=== PATIENT | male | born 1945 | race American Indian/Alaskan Native ===

== ENCOUNTER 2018-01-08 17:47 | Emergency (ER) | payer MEDICARE ==
[2018-01-08 18:32] VITALS: BP 169/75
--- NOTE | 2018-01-08 19:08 | Emergency Department Report ---
ED Male HPI - General Chief complaint: Urogenital-Male Stated complaint: HEMATURIA Time Seen by Provider: 01/08/18 18:25 Source: patient Mode of arrival: Stretcher Limitations: No Limitations - History of Present Illness Initial comments: Mr. Curtis is a 72-year-old male with history of prostate cancer and hematuria. In September he had a prolonged hospital course at [facility]. He required dialysis and multiple blood transfusions. He also had urology surgical intervention due to the bleeding. Had 2 previous suprapubic catheters. He now has an indwelling Bryant catheter. He has been at [facility] for the last month since this prolonged hospitalization. Prior to being admitted to the [facility], he has been home fully functional and independent. His daughter Jana is at the bedside. She provided the majority of the medical information. Also reviewed the documentation provided by [facility]. Has history of urinary retention, hypertension, diabetes, hematuria, myocardial infarction, Guillian Strang. His former surgeon urologist was Dr. Pierre. Complaint: other (hematuria; blood in collection bag) -: Gradual, days(s) (2 days of bleeding) Severity: mild Consistency: constant - Related Data Home Medications Medication Instructions Recorded Confirmed Last Taken Aspirin [Aspirin TAB] 650 mg PO DAILY 08/24/14 02/25/16 09/04/14 Gabapentin 300 mg PO DAILY 08/24/14 02/25/16 09/04/14 Garlic [Odor Free Garlic] 100 mg PO DAILY 08/24/14 02/25/16 09/04/14 Hydralazine HCl [hydrALAZINE] 100 mg PO DAILY 08/24/14 02/25/16 09/04/14 Metformin HCl [metFORMIN ER] 500 mg PO QDAY 08/24/14 02/25/16 09/04/14 Nebivolol HCl [Bystolic] 10 mg PO QDAY 08/24/14 02/25/16 09/04/14 [place]-3 Fatty Acids [Fish Oil] 300 mg PO DAILY 08/24/14 02/25/16 09/04/14 Tamsulosin [Flomax] 0.4 mg PO QDAY 08/24/14 02/25/16 09/04/14 cloNIDine-TTS PATCH [Catapres-Tts 1 patch TD QWEEK 08/24/14 02/25/16 09/04/14 Patch] Previous Rx's Medication Instructions Recorded Last Taken Type Sulfamethoxazole/Trimethoprim 1 each PO BID #20 tablet 05/21/15 Unknown Rx [Bactrim DS TAB] Cephalexin [Keflex] 500 mg PO TID 7 Days #21 capsule 01/08/18 Unknown Rx Allergies Allergy/AdvReac Type Severity Reaction Status Date / Time No Known Allergies Allergy Verified 01/08/18 18:24 ED Review of Systems ROS: Stated complaint: HEMATURIA Other details as noted in HPI Comment: All other systems reviewed and negative Constitutional: denies: fever, malaise Cardiovascular: denies: chest pain ED Past Medical Hx - Past Medical History Hx Hypertension: Yes (2009) Hx CVA: No Hx Heart Attack/AMI: Yes (1999) Hx Congestive Heart Failure: No Hx Diabetes: Yes Hx Deep Vein Thrombosis: No Hx Arthritis: No Hx Asthma: No Hx COPD: No Hx Dementia: No - Surgical History Hx Breast Surgery: Yes (GROWN L CHEST ) - Social History Smoking Status: Never Smoker Substance Use Type: None - Medications Home Medications: Home Medications Medication Instructions Recorded Confirmed Last Taken Type Aspirin [Aspirin TAB] 650 mg PO DAILY 08/24/14 02/25/16 09/04/14 History Gabapentin 300 mg PO DAILY 08/24/14 02/25/16 09/04/14 History Garlic [Odor Free Garlic] 100 mg PO DAILY 08/24/14 02/25/16 09/04/14 History Hydralazine HCl [hydrALAZINE] 100 mg PO DAILY 08/24/14 02/25/16 09/04/14 History Metformin HCl [metFORMIN ER] 500 mg PO QDAY 08/24/14 02/25/16 09/04/14 History Nebivolol HCl [Bystolic] 10 mg PO QDAY 08/24/14 02/25/16 09/04/14 History [place]-3 Fatty Acids [Fish Oil] 300 mg PO DAILY 08/24/14 02/25/16 09/04/14 History Tamsulosin [Flomax] 0.4 mg PO QDAY 08/24/14 02/25/16 09/04/14 History cloNIDine-TTS PATCH [Catapres-Tts 1 patch TD QWEEK 08/24/14 02/25/16 09/04/14 History Patch] Sulfamethoxazole/Trimethoprim 1 each PO BID #20 tablet 05/21/15 02/25/16 Unknown Rx [Bactrim DS TAB] Cephalexin [Keflex] 500 mg PO TID 7 Days #21 capsule 01/08/18 Unknown Rx ED Physical Exam - General Limitations: No Limitations General appearance: alert, in no apparent distress - Head Head exam: Present: atraumatic, normocephalic - Eye Eye exam: Present: normal appearance - ENT ENT exam: Present: mucous membranes moist - Neck Neck exam: Present: normal inspection - Respiratory Respiratory exam: Present: normal lung sounds bilaterally. Absent: respiratory distress, wheezes, rales, rhonchi - Cardiovascular Cardiovascular Exam: Present: regular rate, normal rhythm, normal heart sounds. Absent: systolic murmur, diastolic murmur, rubs, gallop - GI/Abdominal GI/Abdominal exam: Present: soft, normal bowel sounds. Absent: distended, tenderness, guarding, rebound - Rectal Rectal exam: Present: deferred - exam: Present: urethral discharge, other (Bryant inserted bleeding at urethral meatus bloody urine in bag). Absent: testicular tenderness, scrotal swelling, vertical testicular lie, circumcision - Extremities Exam Extremities exam: Present: normal inspection - Back Exam Back exam: Present: normal inspection - Neurological Exam Neurological exam: Present: alert, oriented X3 - Psychiatric Psychiatric exam: Present: normal affect, normal mood - Skin Skin exam: Present: warm, dry, intact, normal color. Absent: rash ED Course Vital Signs 01/08/18 01/08/18 18:27 19:42 Temperature 98 F 98.4 F Pulse Rate 97 H Respiratory 16 Rate Blood Pressure 169/75 O2 Sat by Pulse 97 Oximetry ED Medical Decision Making - Lab Data Result diagrams: 01/08/18 19:07 01/08/18 19:07 - Medical Decision Making Mr. Curtis presents with hematuria with hx of cystitis associated with radiation for prostate ca. He does have mild anemia. Normal vital signs without urinary obstruction. First dose of Keflex given in the ED for cystitis. Patient will be discharged back to rehab facility. I discussed case with Dr. Bender urologist risk control field representative who is aware that patient desires to change from his primary urologist. Dr. Bender agreed to see patient in office. Critical care attestation.: If time is entered above; I have spent that time in minutes in the direct care of this critically ill patient, excluding procedure time. ED Disposition Clinical Impression: Hematuria, Cystitis, Bryant catheter in place Disposition: [id number]/TX-70 ANOTHER TYPE HLTHCARE Is pt being admited?: No Does the pt Need Aspirin: No Condition: Stable Instructions: Acute Hematuria (ED), Urinary Tract Infection in Men (ED) Prescriptions: Cephalexin [Keflex] 500 mg PO TID 7 Days #21 capsule Referrals: SARAH BENDER MD [Staff Physician] - 3-5 Days Time of Disposition: 22:14
[2018-01-08 19:28] LABS: Basophils % (Auto) 0.6 % (0.0-1.8); Eosinophils # (Auto) 0.3 K/mm3 (0.0-0.4); Eosinophils % (Auto) 3.3 % (0.0-4.3); Hematocrit 25.4 % (35.5-45.6); Hemoglobin 8.3 gm/dl (11.8-15.2); Lymphocytes # (Auto) 0.9 K/mm3 (1.2-5.4); Lymphocytes % (Auto) 11.4 % (13.4-35.0); Mean Corpuscular HGB Conc 33 % (32-34); Mean Corpuscular Volume 73 fl (84-94); Monocytes # (Auto) 0.6 K/mm3 (0.0-0.8); Monocytes % (Auto) 7.7 % (0.0-7.3); Platelet Count 256 K/mm3 (140-440); Red Cell Distribution Width 19.6 % (13.2-15.2)
[2018-01-08 19:32] LABS: Mean Corpuscular Hemoglobin 24 pg (28-32)
[2018-01-08 19:54] LABS: Bilirubin,Urine NEG (Negative); Blood,Urine LG (Negative); Urobilinogen,Urine < 2.0 mg/dL (<2.0)
[2018-01-08 19:57] LABS: Color,Urine Red (Yellow); RBC,Urine > 182.0 /HPF (0.0-6.0); WBC,Urine > 182.0 /HPF (0.0-6.0)
[2018-01-08] MEDS ORDERED: KEFLEX PO ONE (22:15)
== END 2018-01-08 23:41 | disposition other institution (70) ==
LOC: ED 17:47
DX: N30.91 Cystitis, unspecified with hematuria (principal); I10 Essential (primary) hypertension; E11.9 Type 2 diabetes mellitus without complications; Z79.82 Long term (current) use of aspirin
CPT/HCPCS: 36415; 51702; 80048; 81001; 85025; 87086